=== PATIENT | female | born 1945 | race Caucasian/White ===

== ENCOUNTER → 2022-02-15 | Outpatient (CLI) | payer MEDICARE ==
--- NOTE | 2022-02-15 14:00 | Diagnostic Imaging Report ---
INDICATION: Right knee pain. FINDINGS: AP, oblique, lateral, and sunrise views of right knee reveal advanced narrowing of the medial knee joint compartment. No acute fracture or malalignment is identified. There is chondrocalcinosis. Prominent suprapatellar spur is noted. There is no significant joint effusion. No lytic or sclerotic lesion is identified. IMPRESSION: Advanced medial compartment right knee osteoarthritis. Dictated by: Dictated on workstation # [id number]
== END ==
LOC: ORTHO 13:04
PROVIDERS: ATTEND Orthopaedic Surgery
DX: M17.11 Unilateral primary osteoarthritis, right knee (principal)
CPT/HCPCS: 73564; G0463; 99203

== ENCOUNTER → 2022-06-28 | Outpatient (CLI) | payer MEDICARE | LOC: ORTHO 13:00 | PROVIDERS: ATTEND Orthopaedic Surgery | DX: M17.11 Unilateral primary osteoarthritis, right knee (principal); M16.11 Unilateral primary osteoarthritis, right hip; G62.9 Polyneuropathy, unspecified | CPT/HCPCS: 99213 ==